=== PATIENT | female | born 1980 | race African-American/Black ===

== ENCOUNTER 2023-07-04 08:45 | Emergency (ER) | payer OTHER ==
[~2023-07-04] VITALS: Ht 172.7 cm; Wt 60.2 kg
[2023-07-04 09:15] VITALS: BP 146/87; PULSE 78; RESP 14; TEMP 98; O2SAT 98
[2023-07-04] MEDS: KETOROLAC TROMETH 60MG/2ML VIAL IM ONE (09:52)
[2023-07-04] MEDS ORDERED: PRED20TA2 PO (09:56)
[2023-07-04] MEDS ORDERED: IBUP-1456 PO (09:56)
== END 2023-07-04 09:58 | disposition home or self-care (01) ==
LOC: ER 08:45
DX: M50.30 Other cervical disc degeneration, unspecified cervical region (principal); M54.12 Radiculopathy, cervical region; Z79.1 Long term (current) use of non-steroidal anti-inflammatories (NSAID); Z79.899 Other long term (current) drug therapy
CPT/HCPCS: 72040; 96372; 99283; J1885